=== PATIENT | male | born 1955 | race Asian ===

== ENCOUNTER → 2020-06-25 | Outpatient (CLI) | payer OTHER ==
[~2020-06-25] VITALS: Ht 172.7 cm; Wt 72.6 kg
[~2020-06-25] MED LIST: CIALIS20 MG PO; DOXEPIN 10 MG C10 MG PO; GAVISCON ES CH1 EACH PO; OMEPRAZOLE 20 M20 M1 PO; TRIDESILON60 GM TOP; VITAMIN D350 MCG PO; ZYRTEC10 M5 PO
== END | disposition home or self-care (01) ==
LOC: GI 09:29
PROVIDERS: ATTEND Internal Medicine Gastroenterology
DX: R12 Heartburn (principal); K21.9 Gastro-esophageal reflux disease without esophagitis; Z98.890 Other specified postprocedural states; Z79.899 Other long term (current) drug therapy; Z85.828 Personal history of other malignant neoplasm of skin; Z88.0 Allergy status to penicillin; Z88.8 Allergy status to other drugs, medicaments and biological substances
CPT/HCPCS: 62110; 62900

== ENCOUNTER → 2020-11-23 | Outpatient (CLI) | payer OTHER | LOC: LAB 14:32 | PROVIDERS: ATTEND Family Medicine | DX: J02.9 Acute pharyngitis, unspecified (principal); R05 Cough; Z20.822 Contact with and (suspected) exposure to COVID-19 ==